=== PATIENT | male | born 1940 | race Asian ===

== ENCOUNTER 2018-05-07 11:33 | Emergency (ER) | payer OTHER ==
[~2018-05-07] VITALS: Ht 172.7 cm; Wt 90.7 kg
[2018-05-07 11:53] VITALS: Ht 172.7 cm; Wt 90.7 kg
[2018-05-07 12:44] VITALS: BP 110/76
== END 2018-05-07 12:38 | disposition home or self-care (01) ==
LOC: ED 11:33
DX: I83.92 Asymptomatic varicose veins of left lower extremity (principal); J45.909 Unspecified asthma, uncomplicated; I10 Essential (primary) hypertension; Z98.890 Other specified postprocedural states; Z88.6 Allergy status to analgesic agent